=== PATIENT | male | born 1980 | race Caucasian/White ===

== ENCOUNTER 2018-10-21 20:56 | Emergency (ER) | payer SELFPAY ==
[2018-10-21 21:52] VITALS: BP 109/73
--- NOTE | 2018-10-21 21:53 | Emergency Department Report ---
Blank Doc - Documentation Documentation: 38 y/o male reports that his tool box fell on him and has sustain laceration to left ear and 2 laceration to his scalp. Not utd on tetanus. Happened about 3 hours ago.
== END 2018-10-21 22:55 | disposition left against medical advice (07) ==
LOC: EDBD → ED 20:56
DX: S01.312A Laceration without foreign body of left ear, initial encounter (principal); Z53.21 Procedure and treatment not carried out due to patient leaving prior to being seen by health care provider; X58.XXXA Exposure to other specified factors, initial encounter; Y93.89 Activity, other specified; Y92.89 Other specified places as the place of occurrence of the external cause; Y99.8 Other external cause status

== ENCOUNTER 2018-12-12 00:56 | Emergency (ER) | payer OTHER ==
[2018-12-12 01:19] VITALS: BP 107/62
[2018-12-12] MEDS ORDERED: CLEOCIN PO ONE (02:19)
[2018-12-12] MEDS ORDERED: BOOSTRIX IM ONE (02:19)
[2018-12-12 02:55] LABS: Basophils % (Auto) 0.2 % (0.0-1.8); Eosinophils # (Auto) 0.1 K/mm3 (0.0-0.4); Eosinophils % (Auto) 1.2 % (0.0-4.3); Hematocrit 45.7 % (35.5-45.6); Hemoglobin 15.3 gm/dl (11.8-15.2); Lymphocytes # (Auto) 1.3 K/mm3 (1.2-5.4); Lymphocytes % (Auto) 10.7 % (13.4-35.0); Mean Corpuscular HGB Conc 34 % (32-34); Mean Corpuscular Volume 89 fl (84-94); Monocytes % (Auto) 8.7 % (0.0-7.3); Platelet Count 321 K/mm3 (140-440); Red Blood Count 5.17 M/mm3 (3.65-5.03); Red Cell Distribution Width 13.9 % (13.2-15.2)
[2018-12-12 03:15] LABS: BUN/Creatinine Ratio 21; Blood Urea Nitrogen 23 mg/dL (9-20); Calcium 9.8 mg/dL (8.4-10.2); Hemolysis Index 8
--- NOTE | 2018-12-12 03:49 | Emergency Department Report ---
- General Chief complaint: Skin/Abscess/Foreign Body Stated complaint: SPIDER BITE Time Seen by Provider: 12/12/18 01:57 Source: patient, EMS Mode of arrival: Stretcher Limitations: No Limitations - History of Present Illness Initial comments: Patient is a 37-year-old male who presents to the emergency room with complaints of a possible spider bite to the left hip that occurred 4 days ago. He states he has seen a small amount of drainage. He denies any fever. He denies any p ast medical history or allergies medications. He is ambulatory without difficulty. He denies any pain in the hip. - Related Data Previous Rx's Medication Instructions Recorded Last Taken Type Clindamycin [Clindamycin CAP] 300 mg PO QID 10 Days #80 capsule 12/12/18 Unknown Rx Allergies Allergy/AdvReac Type Severity Reaction Status Date / Time No Known Allergies Allergy Unverified 12/12/18 01:19 Abscess Boil HPI - HPI Chief Complaint: Skin/Abscess/Foreign Body Stated Complaint: SPIDER BITE Time Seen by Provider: 12/12/18 01:57 Home Medications: Previous Rx's Medication Instructions Recorded Last Taken Type Clindamycin [Clindamycin CAP] 300 mg PO QID 10 Days #80 capsule 12/12/18 Unknown Rx Allergies/Adverse Reactions: Allergies Allergy/AdvReac Type Severity Reaction Status Date / Time No Known Allergies Allergy Unverified 12/12/18 01:19 ED Review of Systems ROS: Stated complaint: SPIDER BITE Other details as noted in HPI Comment: All other systems reviewed and negative ED Past Medical Hx - Past Medical History Previous Medical History?: No - Surgical History Past Surgical History?: No - Social History Smoking Status: Current Every Day Smoker Substance Use Type: None - Medications Home Medications: Home Medications Medication Instructions Recorded Confirmed Last Taken Type Clindamycin [Clindamycin CAP] 300 mg PO QID 10 Days #80 capsule 12/12/18 Unknown Rx ED Physical Exam - General Limitations: No Limitations General appearance: alert, in no apparent distress - Head Head exam: Present: atraumatic, normocephalic - Eye Eye exam: Present: normal appearance, PERRL - ENT ENT exam: Present: mucous membranes moist - Neurological Exam Neurological exam: Present: alert, oriented X3 - Psychiatric Psychiatric exam: Present: normal affect, normal mood - Skin Skin exam: Present: warm, other (2 cm area of induration with small area of purulent drainage on the left hip, small surrounding area of necrosis around the edges, area of surrounding erythema, no fluctuance, no TTP, FROM of the left hip) ED Course Vital Signs 12/12/18 12/12/18 01:13 04:07 Temperature 97.9 F Pulse Rate 109 H 89 Respiratory 18 18 Rate Blood Pressure 107/62 O2 Sat by Pulse 99 100 Oximetry ED Medical Decision Making - Lab Data Result diagrams: 12/12/18 02:34 12/12/18 02:34 Lab Results 12/12/18 12/12/18 Range/Units 02:34 02:34 WBC 11.9 H (4.5-11.0) K/mm3 RBC 5.17 H (3.65-5.03) M/mm3 Hgb 15.3 H (11.8-15.2) gm/dl Hct 45.7 H (35.5-45.6) % MCV 89 (84-94) fl MCH 30 (28-32) pg MCHC 34 (32-34) % RDW 13.9 (13.2-15.2) % Plt Count 321 (140-440) K/mm3 Lymph % (Auto) 10.7 L (13.4-35.0) % Bullitt % (Auto) 8.7 H (0.0-7.3) % Eos % (Auto) 1.2 (0.0-4.3) % Baso % (Auto) 0.2 (0.0-1.8) % Lymph # 1.3 (1.2-5.4) K/mm3 Bullitt # 1.0 H (0.0-0.8) K/mm3 Eos # 0.1 (0.0-0.4) K/mm3 Baso # 0.0 (0.0-0.1) K/mm3 Seg Neutrophils % 79.2 H (40.0-70.0) % Seg Neutrophils # 9.4 H (1.8-7.7) K/mm3 Sodium 142 (137-145) mmol/L Potassium 3.8 (3.6-5.0) mmol/L Chloride 98.5 (98-107) mmol/L Carbon Dioxide 30 (22-30) mmol/L Anion Gap 17 mmol/L BUN 23 H (9-20) mg/dL Creatinine 1.1 (0.8-1.5) mg/dL Estimated GFR > 60 ml/min BUN/Creatinine Ratio 21 % Glucose 77 (75-100) mg/dL Calcium 9.8 (8.4-10.2) mg/dL C-Reactive Protein 4.30 H (0.00-1.30) mg/dL Vital Signs 12/12/18 12/12/18 01:13 04:07 Temperature 97.9 F Pulse Rate 109 H 89 Respiratory 18 18 Rate Blood Pressure 107/62 O2 Sat by Pulse 99 100 Oximetry - Medical Decision Making Patient is a 37-year-old male who presents to the emergency room with complaints of a possible spider bite to the left hip that occurred 4 days ago. He states he has seen a small amount of drainage. He denies any fever. He denies any past medical history or allergies medications. He is ambulatory without difficulty. He denies any pain in the hip. VSS. pt is afebrile. Labs with mildly elevated WBC at 11 and CRP of 4. on exam: 2 cm area of induration with small area of purulent drainage on the left hip, small surrounding area of necrosis around the edges, area of surrounding erythema, no fluctuance, no TTP, FROM of the left hip. area cleaned with betadine. pt given tetanus immunization. pt given dose of clindamycin while in the ED. pt given prescription for clindamycin. advised it is very important that you take all medication as prescribed to completion. Please follow up with a primary care doctor in the next 2-3 days for reevaluation. discussed importance of having a reevaluation. Return to the emergency room immediately for any new or worsening symptoms or if symptoms aren't improving. Critical care attestation.: If time is entered above; I have spent that time in minutes in the direct care of this critically ill patient, excluding procedure time. ED Disposition Clinical Impression: Cellulitis Qualifiers: Site of cellulitis: extremity Site of cellulitis of extremity: lower extremity Laterality: left Qualified Code(s): L03.116 - Cellulitis of left lower limb Disposition: TO HOME OR SELFCARE Is pt being admited?: No Does the pt Need Aspirin: No Condition: Stable Instructions: Cellulitis (ED) Additional Instructions: It is very important that you take all medication as prescribed to completion. Please follow up with a primary care doctor in the next 2-3 days for reevaluation. Return to the emergency room immediately for any new or worsening symptoms or if symptoms aren't improving. Prescriptions: Clindamycin [Clindamycin CAP] 300 mg PO QID 10 Days #80 capsule Referrals: [facility] [Outside] - 2-3 Days [facility] [Provider Group] - 2-3 Days [facility] [Outside] - 2-3 Days Time of Disposition: 03:49 Print Language: YAKUT
== END 2018-12-12 04:07 | disposition home or self-care (01) ==
LOC: ED 00:56
DX: L03.116 Cellulitis of left lower limb (principal); F17.200 Nicotine dependence, unspecified, uncomplicated
CPT/HCPCS: 36415; 80048; 85025; 86140; 90471; 90715